=== PATIENT | male | born 1985 | race American Indian/Alaskan Native ===

== ENCOUNTER 2019-01-23 03:52 | Emergency (ER) | payer BC, OTHER ==
[2019-01-23] MEDS ORDERED: ASPIRIN PO ONE (03:56)
[2019-01-23 04:18] LABS: Hematocrit 42.4 % (35.5-45.6); Mean Corpuscular HGB Conc 33 % (32-34); Mean Corpuscular Volume 79 fl (84-94); Platelet Count 191 K/mm3 (140-440); Red Blood Count 5.35 M/mm3 (3.65-5.03); Red Cell Distribution Width 14.8 % (13.2-15.2)
[2019-01-23 04:50] LABS: BUN/Creatinine Ratio 8; Blood Urea Nitrogen 10 mg/dL (9-20); Calcium 9.2 mg/dL (8.4-10.2); Hemolysis Index 9
--- NOTE | 2019-01-23 04:50 | XRay Report ---
PROCEDURE: XR CHEST ROUTINE 2V TECHNIQUE: PA and lateral chest radiographs were obtained. HISTORY: Chest Pain COMPARISONS: None. FINDINGS: Heart: Normal. Mediastinum/Vessels: Normal. Lungs/Pleural space: Normal. Bony thorax: No acute osseous abnormality. IMPRESSION: Normal examination. This document is electronically signed by Genaro Avendaño MD., January 23 2019 04:48:35 AM ET
[2019-01-23 05:06] LABS: Anisocytosis 1+; Total Cells Counted 100
[2019-01-23 05:07] LABS: Large Platelets Few; Platelet Estimate Consistent w Auto
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
[2019-01-23] MEDS ORDERED: ASPIRIN PO NR (08:00)
[2019-01-23 08:05] VITALS: BP 143/79
== END 2019-01-23 08:40 | disposition home or self-care (01) ==
LOC: ED 03:52
DX: R00.2 Palpitations (principal); T43.615A Adverse effect of caffeine, initial encounter; R07.9 Chest pain, unspecified; F17.200 Nicotine dependence, unspecified, uncomplicated; Y92.89 Other specified places as the place of occurrence of the external cause
CPT/HCPCS: 36415; 71046; 80048; 84484; 85007; 85025; 85379; 93005; 93010